=== PATIENT | female | born 1950 | race Caucasian/White ===

== ENCOUNTER 2018-11-11 16:54 | Emergency (ER) | payer MEDICARE ==
[~2018-11-11] VITALS: Ht 167.6 cm; Wt 71.8 kg
[~2018-11-11 16:54] MED LIST: MULTAQ400 MG PO; MYRBETRIQ25 MG PO; NEXIUM40 M1 PO; PREMARIN VAG0.625 MG VA; RANITIDINE150 M1 PO; SEROQUEL100 MG PO; TRIMETHOPRIM100 M1 PO; TRINTELLIX5 MG PO; WARFARIN4 MG PO; WARFARIN5 MG PO; WELLBUTRIN SR150 MG PO
[2018-11-11] MEDS ORDERED: ELIQUIS5 MG PO (17:12)
[2018-11-11] MEDS ORDERED: ATIVAN1 MG PO (17:12)
[2018-11-11] MEDS ORDERED: PROTONIX40 MG PO (17:13)
[2018-11-11] MEDS ORDERED: TRAZODONE50 MG PO (17:14)
[2018-11-11] MEDS ORDERED: TEMAZEPAM30 MG PO (17:14)
[2018-11-11] MEDS ORDERED: TRINTELLIX20 MG PO (17:15)
[2018-11-11] MEDS ORDERED: WELLBUTRIN SR100 MG PO (17:16)
[2018-11-11] MEDS ORDERED: VESICARE10 MG PO (17:17)
[2018-11-11] MEDS ORDERED: CARAFATE1 GM PO (17:18)
[2018-11-11 17:56] LABS: ALBUMIN 3.7 g/dL (3.2-5.0); ALKALINE PHOSPHATASE 73 u/l (38-126); ANION GAP 12 (6-22 (CALC)); BILIRUBIN, TOTAL 0.3 mg/dL (0.0-1.4); BUN 20 mg/dL (8-23); BUN/CREATININE RATIO 25 (12-20 (CALC)); CARBON DIOXIDE 26 mmol/l (22-30); CHLORIDE 105 mmol/l (95-108); CREATININE 0.8 mg/dL (0.5-1.0); GFR > 60 ML/MIN (>=60 (CALC)); GFR FOR AFR.AMER. > 60 ML/MIN (>=60 (CALC)); POTASSIUM 4.5 mmol/l (3.5-5.1); SGOT/AST 26 u/l (9-36); SODIUM 139 mmol/l (137-146); TOTAL PROTEIN 6.3 g/dL (6.3-8.2)
[2018-11-11] MEDS ORDERED: CARDIZEM CD120 M1 PO (18:09)
[2018-11-11 18:16] VITALS: BP 100/53
== END 2018-11-11 18:20 | disposition home or self-care (01) ==
LOC: ED 16:54
PROVIDERS: Emergency Medicine
DX: I48.0 Paroxysmal atrial fibrillation (principal); R06.02 Shortness of breath; R00.2 Palpitations